=== PATIENT | female | born 1990 | race Caucasian/White ===

== ENCOUNTER → 2024-02-05 07:51 | Outpatient (REF) | payer OTHER, SELFPAY | LOC: PNTC 07:51 | PROVIDERS: ATTENDING PHYSICIAN Nurse Practitioner Family | DX: Z34.90 Encounter for supervision of normal pregnancy, unspecified, unspecified trimester (principal) | CPT/HCPCS: 76801 ==

== ENCOUNTER → 2024-02-24 08:19 | Outpatient (REF) | payer OTHER, SELFPAY | LOC: PNTC 08:19 | PROVIDERS: ATTENDING PHYSICIAN Obstetrics & Gynecology | DX: Z36.0 Encounter for antenatal screening for chromosomal anomalies (principal); Z36.82 Encounter for antenatal screening for nuchal translucency | CPT/HCPCS: 36415; 76801; 76813 ==

== ENCOUNTER → 2024-04-20 08:48 | Outpatient (REF) | payer OTHER, SELFPAY | LOC: PNTC 08:48 | PROVIDERS: ATTENDING PHYSICIAN Obstetrics & Gynecology | DX: O09.529 Supervision of elderly multigravida, unspecified trimester (principal); O34.219 Maternal care for unspecified type scar from previous cesarean delivery | CPT/HCPCS: 76811 ==

== ENCOUNTER → 2024-05-06 14:46 | Outpatient (REF) | payer OTHER, SELFPAY | LOC: WDC 14:46 | PROVIDERS: ATTENDING PHYSICIAN Nurse Practitioner Family; FAMILY PHYSICIAN Family Medicine | DX: N64.4 Mastodynia (principal) | CPT/HCPCS: 76642 ==

== ENCOUNTER → 2024-06-01 13:19 | Outpatient (REF) | payer OTHER, SELFPAY | LOC: PNTC 13:19 | PROVIDERS: ATTENDING PHYSICIAN Obstetrics & Gynecology | DX: O09.529 Supervision of elderly multigravida, unspecified trimester (principal) | CPT/HCPCS: 76816 ==

== ENCOUNTER → 2024-07-13 08:49 | Outpatient (REF) | payer OTHER, SELFPAY | LOC: PNTC 08:49 | PROVIDERS: ATTENDING PHYSICIAN Obstetrics & Gynecology | DX: O09.529 Supervision of elderly multigravida, unspecified trimester (principal); O34.219 Maternal care for unspecified type scar from previous cesarean delivery | CPT/HCPCS: 76816 ==

== ENCOUNTER → 2024-08-10 10:55 | Outpatient (REF) | payer OTHER, SELFPAY | LOC: PNTC 10:55 | PROVIDERS: ATTENDING PHYSICIAN Obstetrics & Gynecology | DX: O09.519 Supervision of elderly primigravida, unspecified trimester (principal) | CPT/HCPCS: 76816 ==

== ENCOUNTER 2024-09-02 00:30 | Inpatient (IN) | payer OTHER, SELFPAY ==
[2024-09-02 00:43] VITALS: BMI 30.7
[2024-09-02 01:02] LABS: % Basophils 0.4 % (0-2); % Eosinophils 2.7 % (0-6); % Immature Granulocytes 0.7 % (0-0.5); % Lymphocytes 18.5 % (20.5-51.1); % Monocytes 7.8 % (1.7-9.3); % Neutrophils 69.9 % (42.2-75.2); Absolute Eosinophils 0.2 10^3/uL (0-0.7); Absolute Immature Granulocytes 0.1 10^3/uL (0-0.05); Absolute Lymphocytes 1.4 10^3/uL (1.2-3.4); Absolute Monocytes 0.6 10^3/uL (0.1-0.6); Absolute Neutrophils 5.2 10^3/uL (1.4-6.5); Hematocrit 34.1 % (37.0-47.0); Mean Corp Hgb Conc. 35.2 g/dL (33.0-37.0); Mean Corpuscular Hgb 29.3 pg (27.0-31.0); Mean Corpuscular Volume 83.2 fL (81.0-99.0); Mean Platelet Volume 10.4 fL (7.4-10.4); Nucleated Red Blood Cells % 0 %; Platelet Count 161 10^3/uL (130-400); Red Cell Dist. Width 14.8 % (11.5-14.5); White Blood Cell Count 7.5 10^3/uL (4.8-10.8)
[2024-09-02 01:05] VITALS: BP 144/77
[2024-09-02] MEDS: SUBLIMAZE 100 MCG EPIDURAL (01:19)
[2024-09-02] MEDS: FENTANYL/BUPIVACAINE 100 EPIDURAL (01:37)
[2024-09-02] MEDS: TYLENOL 1000 MG PO (03:04)
[2024-09-02] MEDS: BICITRA 30 ML PO (03:04)
[2024-09-02] MEDS: ANCEF 10 IV (03:05)
[2024-09-02] MEDS: ZITHROMAX INFUSION 250 IV (03:07)
[2024-09-02 03:56] LABS: Cord ABG Comment CORD BLOOD; HCO3 Cord ABG 23.1 mmol/L; O2 Saturation % Cord ABG 65.9 %; PCO2 Cord ABG 40 mmHg; PO2 Cord ABG 30 mmHg; pH Cord ABG 7.37
[2024-09-02 03:59] LABS: B.E. Cord ABG -2.3 mMOL/L; HCO3 Cord ABG 27.2 mmol/L; O2 Saturation % Cord ABG 9.7 %; PCO2 Cord ABG 65 mmHg; PO2 Cord ABG 8 mmHg; pH Cord ABG 7.23
[2024-09-02] MEDS: TORADOL 15 MG IV ×4 (05:17→23:10)
--- NOTE | 2024-09-02 07:16 | W.PN.ANS.POP ---
Anesthesia Post Operative
- Anesthesia Post Op Note
Vital Signs Stable-See Nursing Note: Yes
Airway Patent: Yes
Adequate Pain Control: Yes
Change in Mental Status: No
Current Postoperative Nausea & Vomiting: No
Anesthesia Complications: No
General Anesthetic Recall: No
Unplanned Admission: No
Post Op Hydration Adequate: Yes
[2024-09-02] MEDS: SYMBICORT 160/4.5 MCG INHALER 2 PUFF INH ×2 (07:47→20:39)
[2024-09-02] MEDS: PRENATAL PLUS 1 TABLET PO (10:34)
[2024-09-02] MEDS: ZYRTEC 10 MG PO (10:34)
[2024-09-02] MEDS: FLUSH (NSS) 2 FLUSH IV (17:18)
[2024-09-03] MEDS: MOTRIN 600 MG PO ×3 (05:01→20:34)
[2024-09-03] MEDS: TYLENOL 650 MG PO ×3 (05:01→20:34)
[2024-09-03 06:15] LABS: Hematocrit 24.2 % (37.0-47.0); Hemoglobin 8.2 g/dL (12.0-16.0); Mean Corp Hgb Conc. 33.9 g/dL (33.0-37.0); Mean Corpuscular Hgb 30.5 pg (27.0-31.0); Mean Platelet Volume 11.3 fL (7.4-10.4); Platelet Count 123 10^3/uL (130-400); Red Blood Cell Count 2.69 10^6/uL (4.20-5.40); Red Cell Dist. Width 15.4 % (11.5-14.5); White Blood Cell Count 7.6 10^3/uL (4.8-10.8)
[2024-09-03] MEDS: SYMBICORT 160/4.5 MCG INHALER 2 PUFF INH ×2 (07:21→20:24)
[2024-09-03] MEDS: ZYRTEC 10 MG PO (08:12)
[2024-09-03] MEDS: PRENATAL PLUS 1 TABLET PO (08:12)
[2024-09-03] MEDS: SENOKOT-S 1 TABLET PO (08:12)
[2024-09-03] MEDS: FEOSOL 325 MG PO (08:12)
[2024-09-04] MEDS: TYLENOL 650 MG PO ×2 (02:45→09:46)
[2024-09-04] MEDS: MOTRIN 600 MG PO ×2 (02:45→09:45)
[2024-09-04] MEDS: SYMBICORT 160/4.5 MCG INHALER 2 PUFF INH (08:07)
[2024-09-04] MEDS: SENOKOT-S 1 TABLET PO (09:45)
[2024-09-04] MEDS: PRENATAL PLUS 1 TABLET PO (09:45)
[2024-09-04] MEDS: ZYRTEC 10 MG PO (09:45)
[2024-09-04] MEDS: FEOSOL 325 MG PO (09:46)
== END 2024-09-04 12:08 | disposition home or self-care (01) | DRG 788 ==
LOC: LDRP 00:30
PROVIDERS: ADMITTING PHYSICIAN Obstetrics & Gynecology; FAMILY PHYSICIAN Family Medicine
PROC: 10D00Z1 Extraction of Products of Conception, Low, Open Approach (ICD-10-PCS; 2024-09-02)
PROC: 6A550ZT Pheresis of Cord Blood Stem Cells, Single (ICD-10-PCS; 2024-09-02)
DX: O34.211 Maternal care for low transverse scar from previous cesarean delivery (principal); O69.2XX0 Labor and delivery complicated by other cord entanglement, with compression, not applicable or unspecified; O76 Abnormality in fetal heart rate and rhythm complicating labor and delivery; Z3A.39 39 weeks gestation of pregnancy; Z37.0 Single live birth; J45.909 Unspecified asthma, uncomplicated; O99.72 Diseases of the skin and subcutaneous tissue complicating childbirth; O99.52 Diseases of the respiratory system complicating childbirth; O77.0 Labor and delivery complicated by meconium in amniotic fluid; L30.9 Dermatitis, unspecified; O90.81 Anemia of the puerperium; D64.9 Anemia, unspecified; Z88.8 Allergy status to other drugs, medicaments and biological substances; Z91.012 Allergy to eggs; Z91.018 Allergy to other foods; Z91.013 Allergy to seafood
CPT/HCPCS: 88307; 36415; 82803; 85025; 85027; 86780; 86850; 86900; 86901; 94640